=== PATIENT | male | born 1985 | race Hispanic/Latino ===

== ENCOUNTER 2019-02-08 02:40 | Emergency (ER) | payer BC ==
[2019-02-08 03:05] LABS: #Basophils 0.1 thou/uL (0.0-0.2); #Eosinphils 0.4 thou/uL (0.0-0.7); #Lymphocytes 4.1 thou/uL (1.20-3.40); #Monocytes 1.2 thou/uL (0.11-0.59); #Neutrophils 5.1 thou/uL (1.40-6.50); %Basophils 1.1 % (0.0-1.0); %Eosinophils 3.4 % (0.0-10.0); %Lymphocytes 37.4 % (21.0-51.0); %Monocytes 11.1 % (0.0-10.0); Hemoglobin 15.5 g/dL (14.0-18.0); Mean Corpuscular HGB CONC 34.6 g/dL (32.0-36.0); Mean Corpuscular Hemoglobin 31.9 pg (27.0-31.0); Mean Platelet Volume 7.1 fL (7.4-10.4); Platelet Count 249 thou/uL (130-400); RBC Distribution Width 11.9 % (11.5-14.5); Red Blood Cell (RBC) Count 4.88 mill/uL (4.70-6.10); White Blood Cell (WBC) Count 10.9 thou/uL (4.8-10.8)
[2019-02-08] MEDS ORDERED: Mag-Al 1200 mg/1200 mg/30 ML UDCUP ONE (03:20)
[2019-02-08] MEDS ORDERED: Lidocaine Viscous Sol 2% 15 ml UD Cup ONE (03:20)
[2019-02-08 03:29] LABS: ALT (SGPT) 56 U/L (8-55); AST (SGOT) 32 U/L (5-34); Albumin 4.3 g/dL (3.5-5.0); Alkaline Phosphatase 84 U/L (40-150); Anion Gap 15 mmol/L (10-20); BUN (Urea Nitrogen) 14 mg/dL (8.9-20.6); Bilirubin, Total 0.3 mg/dL (0.2-1.2); Calc. Creatinine Clearance 0 mL/min (70-130); Calcium 9.1 mg/dL (7.8-10.44); Carbon Dioxide 22 mmol/L (22-29); Chloride 104 mmol/L (98-107); Estimated GFR-MDRD Greater than 90; Globulin 2.9 g/dL (2.4-3.5); Glucose 112 mg/dL (70-105); Lipase 33 U/L (8-78); Potassium 3.6 mmol/L (3.5-5.1); Protein, Total 7.2 g/dL (6.0-8.3); Sodium 137 mmol/L (136-145)
[2019-02-08 03:57] LABS: Bilirubin Negative (Negative); Blood, Urine Negative (Negative); Clarity CLEAR (Clear); Glucose, Urine (Dipstick) Negative (Negative); Leukocyte Negative (Negative); Nitrite Negative (Negative); Protein, Urine (Dipstick) Negative (Neg-Trace); Specific Gravity, Urine 1.025 (1.002-1.036); Urobilinogen 0.2 mg/dL (0.2-1.0)
--- NOTE | 2019-02-08 08:12 | ULT ---
RIGHT UPPER QUADRANT ULTRASOUND: Date: 02/08/19 INDICATION: Right upper quadrant abdominal pain. COMPARISON: None. FINDINGS: There is prominent fatty infiltration of the liver. There is a mobile gallstone within the gallbladde r. No sonographic Mcclain's sign is reported. No gallbladder wall thickening is evident. No pericholec ystic fluid is identified. Common bile duct measured 4.2 mm. Pancreas obscured by overlying bowel gas. Right kidney measures 12.2 x 4.7 x 5.3 cm. No focal renal lesion or hydronephrosis evident. IMPRESSION: 1. Cholelithiasis without sonographic evidence of acute cholecystitis. 2. Fatty infiltration of the liver. POS: BH
== END 2019-02-08 04:28 | disposition home or self-care (01) ==
LOC: ERS 02:40
DX: K29.70 Gastritis, unspecified, without bleeding (principal)
CPT/HCPCS: 36415; 76705; 80053; 81003; 83690; 85025